=== PATIENT | female | born 1990 | race African-American/Black ===

== ENCOUNTER 2017-02-11 22:04 | Emergency (ER) | payer OTHER, MEDICAID ==
[~2017-02-11] VITALS: Ht 165.1 cm; Wt 72.7 kg
[2017-02-12] MEDS ORDERED: MORPHINE SULFATE 4 MG/ML CPJ (NOT FOR IM USE) IV STA (01:30)
[2017-02-12] MEDS ORDERED: SODIUM CHLORIDE 0.9% 1,000 ML IV ONE (01:30)
[2017-02-12] MEDS ORDERED: ONDANSETRON HCL 4MG/2ML VIAL IV STA (01:30)
[2017-02-12] MEDS ORDERED: FAMOTIDINE 20MG/2ML VIAL IV STA (01:30)
[2017-02-12 02:13] LABS: BASOPHILS % 0.6 % (0.0-2.0); EOSINOPHILS % 2.7 % (0.0-5.0); HEMATOCRIT. 32.8 % (36.0-48.0); HEMOGLOBIN. 10.4 g/dL (12.0-16.0); LYMPHOCYTES % 22.6 % (20.0-50.0); MEAN CORPUSCULAR HEMOGLOBIN 26.2 pg (28.0-32.0); MEAN CORPUSCULAR VOLUME 82.5 fL (81.0-99.0); MEAN PLATELET VOLUME 9.2 fl (7.4-10.4); MONOCYTES % 4.2 % (2.0-8.0); NEUTROPHILS % 69.9 % (40.0-76.0); PLATELET 103 x1000/uL (130-400); RED BLOOD CELL COUNT 3.97 mill/uL (4.2-5.4); RED CELL DISTRIBUTION WIDTH 13.8 % (11.6-14.6)
[2017-02-12 02:18] LABS: CHLORIDE 108 mEq/L (98-107)
[2017-02-12 02:19] LABS: CLARITY URINE CLEAR (CLEAR); COLOR URINE YELLOW (YELLOW); GLUCOSE URINE NEGATIVE (NEGATIVE); KETONES URINE NEGATIVE (NEGATIVE); LEUKOCYTE ESTERASE URINE NEGATIVE (NEGATIVE); NITRITE URINE NEGATIVE (NEGATIVE); OCCULT BLOOD URINE 1+ (NEGATIVE); PROTEIN URINE NEGATIVE (NEGATIVE); SPECIFIC GRAVITY URINE 1.019 (1.005-1.030); UROBILINOGEN URINE 0.2 E.U./dL (0.2-1.0)
[2017-02-12 02:19] LABS: HCG SCREEN NEGATIVE
[2017-02-12 02:22] LABS: INR 1.1; PROTHROMBIN TIME 10.9 sec (9.4-11.6)
[2017-02-12 02:28] LABS: CARBON DIOXIDE 22 mEq/L (21-32); ETHANOL BLOOD < 10 mg/dL
[2017-02-12 02:39] LABS: *AMPHETAMINES SCREEN URINE NEGATIVE (NEGATIVE); *BARBITURATES SCREEN URINE NEGATIVE (NEGATIVE); *BENZODIAZEPINES SCREEN URINE NEGATIVE (NEGATIVE); *COCAINE SCREEN URINE NEGATIVE (NEGATIVE); METHADONE URINE SCREEN NEGATIVE (NEGATIVE); OPIATES URINE SCREEN NEGATIVE (NEGATIVE); PHENCYCLIDINE URINE SCREEN NEGATIVE (NEGATIVE)
[2017-02-12 03:03] LABS: CANNABINOID URINE SCREEN PRESUMTIVE POSITIVE (NEGATIVE)
[2017-02-12] MEDS ORDERED: FENTANYL CITRATE/PF 50MCG/ML 2ML VIAL IV ONE (03:15)
[2017-02-12 05:20] VITALS: BP 144/84
== END 2017-02-12 05:25 | disposition home or self-care (01) ==
LOC: ER 22:53
DX: M25.512 Pain in left shoulder (principal); R10.9 Unspecified abdominal pain; M79.605 Pain in left leg; M79.89 Other specified soft tissue disorders; E11.9 Type 2 diabetes mellitus without complications; Z94.0 Kidney transplant status; Z88.5 Allergy status to narcotic agent
CPT/HCPCS: 36415; 74176; 80053; 80305; 81001; 83690; 84703; 85025; 85610; 96361; 96374; 96375; 99285; G0482; J2270; J2405; J3010; J3490; J7030; Z7610